=== PATIENT | female | born 1950 | race Caucasian/White ===

== ENCOUNTER → 2016-02-26 | Outpatient (CLI) | payer BC ==
[~2016-02-26] MED LIST: ACET-819 PO; ACET-93 PO; ALBU0.632 IH; AMLO5TAB2 PO; ASPI-808 PO; ASPI-983 PO; ATOR20TA66 PO; AZIT-21 PO; CNC1KV IJ; FURO20TA4 PO; GABA-488 PO; GABA600T2 PO; GLIM4TAB PO; GUAI1TBM7 PO; LINA5TAB PO; LISI-552 PO; LISI1TAB PO; LOSA100T28 PO; METF-380 PO; METF1000 PO; METO-333 PO; MULT1TAB69 PO; OXYB5TAB9 PO; PANT40TA2 PO; POTA10TA36 PO; SIMV20TA3 PO; TRAM50TA2 PO
--- OUTSIDE RECORDS SUMMARY | 2016-02-26 09:28 | XMS REPORT | Continuity of Care Document ---
Author Author [facility] Organization [facility] Address Unknown Phone Unavailable Care Team Providers Care Aircraft Engine Cylinder Mechanic Name Role Phone SUMAN GABRIEL DO PCP Insurance Providers Payer Name Policy Number Subscriber Name Relationship [facility] [id number] Enmanuel Nunez 18 Self / Same As Patient Advance Directives Directive Response Recorded Date/Time Advance Directives No 07/05/15 3:40pm Health Care Power of Guest Relation Officer No 07/05/15 3:40pm Organ Donor No 07/05/15 3:40pm Problems Active Problems Medical Problem Onset Date Status Chest pain Unknown Acute Medications Current Home Medications Medication Dose Units Route Directions Days/Qty Instructions Start Date Acetaminophen 500 Mg 500 Mg Oral As Needed as needed 03/31/11 Glimepiride 4 Mg 4 Mg Oral Twice A Day LAST FILLED 02/04/15 #60 Multivitamin 1 Each 1 Tab Oral Daily 04/08/15 Cyanocobalamin 1,000 Mcg/Ml 1,000 Mcg Injection 5TH Of Each Month Lisinopril 20 Mg 20 Mg Oral Once 07/05/15 Gabapentin 300 Mg 300 Mg Oral Bedtime 07/05/15 Atorvastatin Calcium 20 Mg 20 Mg Oral Bedtime 30 07/06/15 Metoprolol Tartrate 25 Mg 12.5 Mg Oral Twice A Day 60 07/06/15 Past Home Medications Medication Directions Ordered Status Metformin Hcl (Glucophage) 1,000 Mg Tablet, 1000 Mg Oral Twice A Day With Meals 03/29/11 Discontinued Lisinopril/Hydrochlorothiazide 1 Each Tablet, 2 Tab Oral Daily 03/29/11 Discontinued Guaifenesin/Dextromethorphan 1 Each Tab, 1 Tab Oral Twice A Day as needed for Congestion 03/31/11 Discontinued Albuterol Sulfate 0.63 Mg/3 Ml Vial.neb, 2 Puff Inhalation Four Times Daily as needed 03/31/11 Discontinued Azithromycin (Zpak) 250 Mg Tab, 250 Mg Oral Daily 03/31/11 Discontinued Linagliptin 5 Mg Tablet, 5 Mg Oral Daily 04/08/15 Discontinued Simvastatin 20 Mg Tablet, 20 Mg Oral Daily 04/08/15 Discontinued Aspirin 325 Mg Tablet, 325 Mg Oral Daily 04/08/15 Discontinued Tramadol Hcl 50 Mg Tablet, 50 Mg Oral Every 6 Hours as needed for Pain Discontinued Social History Social History Problem Response Recorded Date/Time Alcohol Use Denies Use 07/05/2015 3:40pm Recreational Drug Use No 07/05/2015 3:40pm Recent Foreign Travel No 05/23/2015 10:56am Sexually Transmitted Disease No 07/05/2015 3:40pm HIV/AIDS No 07/05/2015 3:40pm Do you dip or chew tobacco? No 07/05/2015 12:56pm Hospital Discharge Instructions No hospital discharge instructions. Plan of Care Prescriptions See Medication Section Functional Status No functional status results. Allergies, Adverse Reactions, Alerts No known allergies. Immunizations Name Given Type Date of Pneumonia Vaccine 06/22/11 Historical Date of Influenza Vaccine 02/05/15 Historical Hepatitis A No Historical Hepatitis B No Historical Tetanus Booster (TDap) Less than 5yrs Historical Vital Signs No known vital signs results. Results No known relevant diagnostic tests, laboratory data and/or discharge summary. Procedures No known history of procedures. Encounters Encounter Location Arrival/Admit Date Discharge/Depart Date Attending Provider Discharged Recurring [facility] 08/18/15 11:51am 11:59pm JOEL GRIJALVA MD
--- NOTE | 2016-02-29 16:09 | ECHOCARDIOGRAPHY REPORT ---
PROCEDURE PHYSICIAN: DANY BOX DATE OF PROCEDURE: 02/26/2016 TWO DIMENSIONAL ECHOCARDIOGRAM REPORT PRIMARY PHYSICIAN: OTHER PHYSICIAN: REFERRING PHYSICIAN: Dr. De La Torre ORDERING PHYSICIAN: INDICATION FOR THE PROCEDURE: Chest pain. MEASUREMENTS DERIVED VALUES LV DIAMETER (LAX) NORMALS NORMALS Diastolic 5 (3.6-5.2) Eject. Fract. 40% (60%+/-6%) Systolic (2.3-3.9) Diastolic Vol. % Shortening (0.22-0.42) Systolic Vol. Aortic Root IVS THICKNESS Diastolic 1 (0.6-1.1) LVPW THICKNESS Diastolic 1 (0.6-1.1) LA DIAMETER Systolic 3.8 (2.1-3.7) FINDINGS: 1. Technically difficult study. 2. The left ventricle is normal in size, endocardium was not well visualized in all segments. Overall, there is diffuse left ventricular hypokinesia with estimated ejection fraction 40%. 3. The left atrium is normal in size. No clot or thrombus were seen within the left atrium. 4. The right atrium and right ventricle are slightly prominent. No clot or thrombus were seen within the right side. 5. Mitral valve is normal in morphology with mild mitral regurgitation noted by color Doppler flow. No mitral valve prolapse. No mitral valve stenosis. 6. Aortic valve is trileaflet with no significant aortic valve stenosis or regurgitation seen. 7. Tricuspid valve is normal in morphology with moderate tricuspid regurgitation noted by color Doppler flow. Doppler across tricuspid valve estimated pulmonary artery pressure of 59+ right atrial pressure. 8. Pulmonic valve is functioning normally. 9. No pericardial effusion. IN CONCLUSION: 1. Technically difficult study. 2. Normal left ventricular size with moderate diffuse left ventricular hypokinesia. Endocardium was not well visualized in all segments. Overall systolic function is reduced. Estimated ejection fraction 40%. 3. Mild mitral regurgitation. Moderate tricuspid regurgitation. 4. Prominent right heart chambers with pulmonary hypertension. Estimated pulmonary artery pressure of 65 mmHg. Job ID: [id number] Dictated Date: 02/28/2016 09:01:11 Motorsports Technician Date: 02/29/2016 16:07:23 / judd
== END ==
LOC: CARD 09:25
PROVIDERS: ATTEND Internal Medicine Cardiovascular Disease
DX: I25.10 Atherosclerotic heart disease of native coronary artery without angina pectoris (principal); I50.21 Acute systolic (congestive) heart failure; R07.89 Other chest pain; I10 Essential (primary) hypertension; E78.2 Mixed hyperlipidemia
CPT/HCPCS: 93306

== ENCOUNTER → 2016-03-01 | Outpatient (CLI) | payer BC ==
[~2016-03-01] MED LIST changes: +CATHETER FLUSH 10 ML SYR IV PRN; +REGADENOSON 0.4 MG/5 ML SYR (LEXISCAN) IV ONE
--- OUTSIDE RECORDS SUMMARY | 2016-03-01 07:45 | XMS REPORT | Continuity of Care Document ---
Author Author [facility] Organization [facility] Address Unknown Phone Unavailable Care Team Providers Care Station Gateman Name Role Phone SUMAN GABRIEL DO PCP Insurance Providers Payer Name Policy Number Subscriber Name Relationship [facility] [id number] Enmanuel Nunez 18 Self / Same As Patient Advance Directives Directive Response Recorded Date/Time Advance Directives No 07/05/15 3:40pm Health Care Power of Audio/Visual Manager No 07/05/15 3:40pm Organ Donor No 07/05/15 [...] Discharge/Depart Date Attending Provider Discharged Recurring [facility] 08/18/15 11:51am 11:59pm JOEL GRIJALVA MD
[2016-03-01 09:34] VITALS: BP 173/83
[2016-03-01 09:40] VITALS: BP 169/80
--- NOTE | 2016-03-02 09:54 | STRESS TEST ---
PROCEDURE PHYSICIAN: DANY BOX LEXISCAN MYOVIEW STRESS TEST REPORT REFERRING PHYSICIAN: Dr. De La Torre DATE OF PROCEDURE: 03/01/2016 INDICATION: Coronary artery disease, congestive heart failure. Baseline heart rate is 87, baseline blood pressure: 173/83. Baseline EKG: Sinus rhythm with no ischemic changes. SUMMARY: The patient was injected with 10.25 mCi of technetium 99 Myoview and the resting images were obtained. Then the patient received 0.4 mg of Lexiscan, followed by 30.4 mCi of technetium 99 Myoview. Throughout the test, there were no EKG changes. The resting and stress images were reviewed and compared in the short axis, horizontal long axis, and vertical long axis views. Review of the images showed breast attenuation affecting the quality of the images. There is reversible ischemia involving the mid to apical anterior wall, mid to apical inferior wall and anterior lateral wall. SSS is 16, SDS 9, TID value 0.96. On the gated images, the left ventricle appeared to be dilated with diffuse left ventricular hypokinesia. Calculated ejection fraction 33%. CONCLUSION: 1. The patient tolerated Lexiscan well. 2. Breast attenuation affecting the quality of the images with reversible ischemia involving the mid to apical anterior wall and mid to apical inferior wall. 3. Dilated left ventricle with diffuse left ventricular hypokinesia. Calculated ejection fraction 33%. Job ID: [id number] Dictated Date: 03/02/2016 08:38:41 Saw Cleaner Date: 03/02/2016 09:50:27 / georgina
== END ==
LOC: CARD 07:42
PROVIDERS: ATTEND Internal Medicine Cardiovascular Disease
DX: I25.10 Atherosclerotic heart disease of native coronary artery without angina pectoris (principal); I50.21 Acute systolic (congestive) heart failure; R07.89 Other chest pain; I10 Essential (primary) hypertension; E78.2 Mixed hyperlipidemia
CPT/HCPCS: 78452; 93017

== ENCOUNTER 2016-03-10 06:52 | Day surgery (SDC) | payer BC ==
[~2016-03-10] VITALS: Ht 170.2 cm; Wt 99.3 kg
[2016-03-10] VITALS (11 sets, daily range): BP systolic 119–168; BP diastolic 60–80
[~2016-03-10 06:52] MED LIST changes: -ACET-93 PO; -AMLO5TAB2 PO; -ASPI-983 PO; -CATHETER FLUSH 10 ML SYR IV PRN; -FURO20TA4 PO; -GABA600T2 PO; -LOSA100T28 PO; -METF1000 PO; -OXYB5TAB9 PO; -PANT40TA2 PO; -POTA10TA36 PO; -REGADENOSON 0.4 MG/5 ML SYR (LEXISCAN) IV ONE
[2016-03-10] MEDS ORDERED: HEParin (CATH LAB) 2,000 ML IV ONE (06:54)
[2016-03-10] MEDS ORDERED: NS IV 1000 ML 1,000 ML ONE (06:54)
[2016-03-10] MEDS ORDERED: LIDOCAINE 1% INJ 20 ML (XYLOCAINE) VIAL ONE (06:54)
--- OUTSIDE RECORDS SUMMARY | 2016-03-10 06:56 | XMS REPORT | Continuity of Care Document ---
Author Author [facility] Organization [facility] Address Unknown Phone Unavailable Care Team Providers Care Engineer Soils Name Role Phone SUMAN GABRIEL DO PCP Insurance Providers Payer Name Policy Number Subscriber Name Relationship [facility] [id number] Enmanuel Nunez 18 Self / Same As Patient Advance Directives Directive Response Recorded Date/Time Advance Directives No 07/05/15 3:40pm Health Care Power of Wooling Machine Operator No 07/05/15 3:40pm Organ Donor No 07/05/15 [...] Discharge/Depart Date Attending Provider Discharged Recurring [facility] 08/18/15 11:51am 11:59pm JOEL GRIJALVA MD
--- OUTSIDE RECORDS SUMMARY | 2016-03-10 06:56 | XMS REPORT | Continuity of Care Document ---
Author Author [facility] Organization [facility] Address Unknown Phone Unavailable Care Team Providers Care Customer Liaison Name Role Phone SUMAN GABRIEL DO PCP Insurance Providers Payer Name Policy Number Subscriber Name Relationship [facility] [id number] Enmanuel Nunez 18 Self / Same As Patient Advance Directives Directive Response Recorded Date/Time Advance Directives No 07/05/15 3:40pm Health Care Power of Polygraph Examiner No 07/05/15 3:40pm Organ Donor No 07/05/15 [...] Discharge/Depart Date Attending Provider Discharged Recurring [facility] 08/18/15 11:51am 11:59pm JOEL GRIJALVA MD
[2016-03-10 07:40] LABS: MEAN PLATELET VOLUME 10.6 FL (7.4-10.4); RED BLOOD COUNT 3.28 10^6/uL (4.35-5.85); WHITE BLOOD COUNT 8.9 10^3/uL (4.3-11.0)
[2016-03-10 07:42] LABS: BILIRUBIN,URINE NEGATIVE (NEGATIVE); KETONES,URINE NEGATIVE (NEGATIVE); LEUKOCYTE ESTERASE ,URINE 1+ (NEGATIVE); NITRITE,URINE NEGATIVE (NEGATIVE); PH,URINE 7 (5-9); PROTEIN,URINE 2+ (NEGATIVE); UROBILINOGEN,URINE NORMAL (NORMAL)
[2016-03-10] MEDS ORDERED: NS IV 1000 ML 1,000 ML IV SCH ×2 (07:45→10:09)
--- NOTE | 2016-03-10 07:46 | Diagnostic Imaging Report ---
INDICATION: Chest pain. Portable chest 7:36 AM FINDINGS: There are postop changes from CABG surgery. Heart size and pulmonary vascularity are normal. Lungs are clear. There are no effusions or pneumothoraces. IMPRESSION: No acute abnormalities in the chest. Dictated by: Dictated on workstation # [id number]
[2016-03-10 08:00] LABS: ALANINE AMINOTRANSFERASE 21 U/L (0-55); ALBUMIN 3.7 G/DL (3.2-4.5); ANION GAP 10 MMOL/L (5-14); ASPARTATE AMINO TRANSFERASE 17 U/L (5-34); BILIRUBIN,TOTAL 0.4 MG/DL (0.1-1.0); BLOOD UREA NITROGEN 19 MG/DL (7-18); BUN/CREATININE RATIO 21; CALCIUM 8.8 MG/DL (8.5-10.1); CARBON DIOXIDE 23 MMOL/L (21-32); CHLORIDE 107 MMOL/L (98-107); CHOLESTEROL 195 MG/DL (< 200); CREATININE SERUM 0.91 MG/DL (0.60-1.30); DIRECT LDL 135 MG/DL (1-129); GFR ESTIMATED > 60; GLUCOSE 222 MG/DL (70-105); POTASSIUM 4.1 MMOL/L (3.6-5.0); SODIUM 140 MMOL/L (135-145); TRIGLYCERIDES 96 MG/DL (<150); VLDL CHOLESTEROL 19 MG/DL (5-40)
[2016-03-10 08:12] LABS: SQUAMOUS EPITHELIAL CELL,UR 0-2 /HPF; WBC,URINE 0-2 /HPF
[2016-03-10 08:38] LABS: INR 1.1 (0.8-1.4); PROTHROMBIN TIME PATIENT 13.6 SEC (12.2-14.7)
[2016-03-10] MEDS ORDERED: MIDAZOLAM 5 MG/5 ML (VERSED) VIAL ONE (09:17)
[2016-03-10] MEDS ORDERED: fentaNYL INJECTION 100 MCG/2 ML AMP ONE (09:17)
[2016-03-10] MEDS ORDERED: AMLO5TAB2 PO (09:42)
[2016-03-10] MEDS ORDERED: ASPI-983 PO (09:42)
[2016-03-10] MEDS ORDERED: GABA600T2 PO (09:42)
[2016-03-10] MEDS ORDERED: OXYB5TAB9 PO (09:42)
[2016-03-10] MEDS ORDERED: POTA10TA36 PO (09:42)
[2016-03-10] MEDS ORDERED: ACET-93 PO (09:42)
[2016-03-10] MEDS ORDERED: ATOR20TA66 PO (09:42)
[2016-03-10] MEDS ORDERED: METF1000 PO (09:42)
[2016-03-10] MEDS ORDERED: FURO20TA4 PO (09:42)
[2016-03-10] MEDS ORDERED: PANT40TA2 PO (09:42)
[2016-03-10] MEDS ORDERED: LOSA100T28 PO (09:42)
[2016-03-10] MEDS ORDERED: LINA5TAB PO (09:42)
[2016-03-10] MEDS ORDERED: METO-333 PO (09:42)
--- NOTE | 2016-03-10 09:47 | Cardiac Procedure Note-CS/ASA ---
Pre-Procedure Note Pre-Op Procedure Note H&P Reviewed The H&P was reviewed, patient examined and no changes noted. Date H&P Reviewed: Mar 10, 2016 Time H&P Reviewed: 09:46 Conscious Sedation Pre-Proced Time Reviewed: 09:46 ASA Class: 3 Airway Mallampati Classification: ([place] appropriate class) I. II. III, IV Lungs Heart ASA score ASA 1: a normal healthy patient ASA 2: a patient with a mild systemic disease (mid diabetes, controlled hypertension, obesity X ASA 3: a patient with a severe systemic disease that limits activity (angina , COPD, prior Myocardial infarction) ASA 4: a patient with an incapacitating disease that is a constant threat to life (CHF, renal failure) ASA 5: a moribund patient not expected to survive 24 hrs. (ruptured aneurysm) ASA 6: a declared brain patient whose organs are being harvested. For emergent operations, add the letter E after the classification Grade 3 Sedation Plan: Analgesia, Amnesia, Plan communicated to team members, Discussed options with patient/fam, Discussed risks with patient/fam Note The patient is an appropriate candidate to undergo the planned procedure, sedation, and anesthesia. The patient immediately re-assessed prior to indication. DANY BOX MD Mar 10, 2016 09:46
--- NOTE | 2016-03-10 10:11 | Discharge Inst-Post CATH ---
Discharge Inst-CATH Post Cardiac Cath D/C Inst Follow Up/Plan Hold Metformin for [address] Walker's office in 2-4 weeks CARDIAC CATH DISCHARGE INSTRUCTIONS *Hold Metformin for 48 hours post heart cath. ACTIVITY * Go Home directly and rest. * Limit activity of the leg (or wrist if it was used) for 7 days including aerobics, swimming, jogging, bicycling, etc. * Restrict stair-climbing for 7 days if possible, if not, climb up with your non -cath leg, then bring together on the same step. * Avoid lifting, pushing, pulling or excessive movement of the affected extremity for 7 days. * Customary sexual activity may be resumed after 2 days-use caution not to use a position that strains or causes pain to the affected extremity. * No driving for 24 hours. * NO SMOKING. * Avoid straining for bowel movements for 7 days. * Gentle walking on level ground is allowed. * Returning to work will depend on the type of procedure and the results. Your doctor will discuss this with you. CALL YOUR DOCTOR FOR ANY OF THE FOLLOWING: *If bleeding from the puncture site occurs- Apply gentle pressure to site with clean cloth and call your doctor or EMS. * If a knot or lump forms under the skin, increases in size, or causes pain. * If bruising appears to be worsening or moving further down your leg instead of disappearing. * Temperature above 101 F. CARE OF YOUR GROIN INCISION; * Bruising or purple discoloration of the skin near the puncture site is common. * You may shower only, no bathtub bathing for 5 days. Be careful to avoid slipping as your leg may feel stiff. * If a closure device was used on your femoral artery, please see the attached guide regarding care of the device and your leg. * REMOVE the dressing from your groin the next day after your procedure in the shower. CARE OF YOUR WRIST INCISION; * Bruising or purple discoloration of the skin near the puncture site is common. * You may shower. * DO NOT submerge wrist. * Remove dressing in 24 hours. DANY WALKER MD Mar 10, 2016 10:11
[2016-03-10] MEDS ORDERED: PATIENT MAY USE OWN MEDS, ALL PO SCH (10:15)
--- NOTE | 2016-03-10 15:04 | DISCHARGE SUMMARY ---
PROCEDURE PHYSICIAN: DANY BOX DATE OF PROCEDURE: 03/10/2016 BRIEF HISTORY: Mrs. Green is a 65-year-old lady with history of coronary artery disease, CABG, had an abnormal stress test. She has been having recurrent chest pain. She was scheduled for left heart catheterization, possible PTCA. PROCEDURE NOTE: After explaining the procedure to the patient, all pros and cons were explained. All questions were answered. The patient signed a consent, then she was placed on the cardiac catheterization laboratory the right groin was prepped in a sterile fashion. Local anesthesia applied to right groin. 6-Kinyarwanda sheath was placed in the right femoral artery. Combination of right and left Agustín catheter were used to access the right and left coronary system. Multiple views were obtained. Agustín right catheter was used to access the vein graft. Advanced to the subclavian artery, I was unable to intubate the internal mammary exchanged over a long Storq wire into an IM catheter. Angiogram to the internal mammary artery was done. Then the catheter was removed. Pigtail catheter advanced to the left ventricular cavity. Left ventriculogram was done. Pullback LV to aorta was done. At the end of the procedure, sheath was removed. Mynx device deployed. Hemostasis achieved. FINDINGS: HEMODYNAMICS: LV pressure 159/26, end-diastolic pressure of 26, aortic pressure 173/69, mean of 90. ANATOMY: 1. Left main coronary artery is bifurcating to left anterior descending and left circumflex artery with no obstructive disease. 2. The left anterior descending artery is moderate in size. The CHING to the LAD is patent with competitive flow. 3. Left circumflex artery is totally occluded proximally with patent vein graft to the circumflex system. 4. Right coronary artery is totally occluded proximally with occluded vein graft to the right coronary system getting filled by collateral from the circumflex system. 5. Vein graft angiogram: The lower vein graft is the vein graft to the right coronary artery that is occluded. 6. Upper vein graft is vein graft to the circumflex artery obtuse marginal branch, which is patent with good flow distally, filing the right coronary artery via collaterals. 7. CHING Angiogram: The CHING angiogram was done showing patent CHING to the LAD with small vessel disease. 8. Left ventriculogram was done in the left anterior oblique position. The left ventricle is dilated with mild diffuse left ventricular hypokinesia. Estimated ejection fraction 35 to 40%. 9. Thoracic aortogram/aortic root angiogram: Thoracic aorta and aortic root are normal in size. No dissection or aneurysm was seen. One vein graft was getting filled. The other vein graft did not receive any blood flow. CONCLUSION: 1. Totally occluded right coronary artery and occluded vein graft to the right coronary artery. The right coronary artery is getting filled by collateral from the left system. 2. Patent CHING to the LAD. 3. Patent vein graft to the obtuse marginal branch. 4. Dilated left ventricle with diffuse left ventricular hypokinesia more pronounced at the inferior wall. Estimated ejection fraction 35 to 40%. 5. Normal thoracic aorta and aortic root. DISCUSSION AND RECOMMENDATION: I will continue maximizing medical therapy. No intervention is warranted at this time. The patient is maintained on beta blockers and AILEEN inhibitors. Continue to monitor her. FINAL DIAGNOSIS: 1. Coronary artery disease. 2. Congestive heart failure, chronic compensated left ventricular systolic dysfunction, ischemic cardiomyopathy. 3. Hypertension. 4. Hyperlipidemia. Job ID: [id number] Dictated Date: 03/10/2016 10:19:09 Instrumentation And Controls Designer Date: 03/10/2016 15:01:35/georgina
== END 2016-03-10 14:45 | disposition home or self-care (01) ==
LOC: CATH 06:52
PROVIDERS: ATTEND Internal Medicine Cardiovascular Disease
DX: R07.89 Other chest pain (principal); I25.10 Atherosclerotic heart disease of native coronary artery without angina pectoris; I25.82 Chronic total occlusion of coronary artery; R94.39 Abnormal result of other cardiovascular function study; I50.22 Chronic systolic (congestive) heart failure; E11.9 Type 2 diabetes mellitus without complications; I10 Essential (primary) hypertension; E78.5 Hyperlipidemia, unspecified; Z79.899 Other long term (current) drug therapy; Z95.1 Presence of aortocoronary bypass graft
CPT/HCPCS: 36415; 71010; 80053; 80061; 81000; 85027; 85610; 85730; 87081; 87088; 93005; 93459; 93567

== ENCOUNTER → 2016-04-22 | Outpatient (CLI) | payer BC ==
[~2016-04-22] MED LIST changes: +ACET-93 PO; +AMLO5TAB2 PO; +ASPI-983 PO; +FURO20TA4 PO; +GABA600T2 PO; +LOSA100T28 PO; +METF1000 PO; +OXYB5TAB9 PO; +PANT40TA2 PO; +POTA10TA36 PO
--- OUTSIDE RECORDS SUMMARY | 2016-04-22 15:22 | XMS REPORT | Continuity of Care Document ---
Author Author [facility] Organization [facility] Address Unknown Phone Unavailable Care Team Providers Care New Accounts Representative Name Role Phone SUMAN GABRIEL DO PCP Insurance Providers Payer Name Policy Number Subscriber Name Relationship [facility] [id number] Enmanuel Nunez 18 Self / Same As Patient Advance Directives Directive Response Recorded Date/Time Advance Directives No 07/05/15 3:40pm Health Care Power of Piercer Operator No 07/05/15 3:40pm Organ Donor No [...] Discharge/Depart Date Attending Provider Discharged Recurring [facility] 08/18/15 11:51am 11:59pm JOEL GRIJALVA MD
--- NOTE | 2016-04-22 19:35 | Diagnostic Imaging Report ---
PA and lateral chest at 345 hours. INDICATION: Shortness of breath. FINDINGS: The cardiomegaly and the sternal wires and surgical clips noted on the prior exam of 03/10/16 are again visualized and no different. The lungs remain clear. There is still no sign of failure, pneumonia or pleural effusion. The mediastinum is not widened. The osseous structures are intact. IMPRESSION: Stable chest. There has been no adverse change since the prior exam. Dictated by: Dictated on workstation # [id number]
== END ==
LOC: RAD 15:19
PROVIDERS: ATTEND Internal Medicine Critical Care Medicine
DX: G47.33 Obstructive sleep apnea (adult) (pediatric) (principal); R06.00 Dyspnea, unspecified
CPT/HCPCS: 71020

== ENCOUNTER → 2016-05-12 | Outpatient (CLI) | payer BC ==
[~2016-05-12] MED LIST changes: +RT-ALBUTEROL SULF 2.5 MG/3 ML PRE-MIX VIAL INH ONE; +RT-ALBUTEROL SULF 2.5 MG/3 ML PRE-MIX VIAL ONE
== END ==
LOC: RT 09:28
PROVIDERS: ATTEND Internal Medicine Critical Care Medicine
DX: R06.00 Dyspnea, unspecified (principal); G47.33 Obstructive sleep apnea (adult) (pediatric)
CPT/HCPCS: 94060; 94640; 94726; 94729

== ENCOUNTER 2021-08-03 05:37 | Outpatient (CLI) | payer MEDICARE ==
[~2021-08-03] VITALS: Ht 167.7 cm; Wt 91.8 kg
[~2021-08-03 05:37] MED LIST changes: +AMLO-250 PO; -AMLO5TAB2 PO; +ASPI-1238 PO; -ASPI-983 PO; -GABA600T2 PO; +GBPN600T PO; -GLIM4TAB PO; +GLIM4TAB5 PO; -LISI-552 PO; +LISI20TA26 PO; -LOSA100T28 PO; +LOSA100T57 PO; +METF-399 PO; -METF1000 PO; +MULT-567 PO; -MULT1TAB69 PO; +OXYB5TAB13 PO; -OXYB5TAB9 PO; -POTA10TA36 PO; +POTA10TA37 PO; -RT-ALBUTEROL SULF 2.5 MG/3 ML PRE-MIX VIAL INH ONE; -RT-ALBUTEROL SULF 2.5 MG/3 ML PRE-MIX VIAL ONE; +SIMV20TA26 PO; -SIMV20TA3 PO; -TRAM50TA2 PO; +TRM50T PO
[2021-08-03] MEDS ORDERED: MAGN100T5 PO (10:15)
[2021-08-03] MEDS ORDERED: ROSU40TA23 PO (10:15)
[2021-08-03] MEDS ORDERED: CANA300T PO (10:15)
[2021-08-03] MEDS ORDERED: DULA0.75 SQ (10:15)
[2021-08-03] MEDS ORDERED: IRON (10:15)
[2021-08-03] MEDS ORDERED: MULT-1021 PO (10:15)
[2021-08-03] MEDS ORDERED: METF-399 PO (10:15)
[2021-08-03] MEDS ORDERED: LISI20TA26 PO (10:15)
[2021-08-03] MEDS ORDERED: METO50TA15 PO (10:15)
[2021-08-03] MEDS ORDERED: ISOS30TA82 PO (10:16)
== END 2021-08-05 09:40 | disposition home or self-care (01) ==
LOC: PREOP 05:37
PROVIDERS: ATTEND Specialist
DX: Z01.818 Encounter for other preprocedural examination (principal)

== ENCOUNTER 2021-08-07 09:32 | Day surgery (SDC) | payer MEDICARE ==
[~2021-08-07] VITALS: Ht 167.7 cm; Wt 91.8 kg
[~2021-08-07 09:32] MED LIST changes: +CANA300T PO; +DULA0.75 SQ; +IRON; +ISOS30TA82 PO; +MAGN100T5 PO; +METO50TA15 PO; +MULT-1021 PO; +ROSU40TA23 PO
[2021-08-07] MEDS ORDERED: TIMOLOL MALEATE 0.5% 5 ML (TIMOPTIC) BTL OU PRN (09:45)
[2021-08-07] MEDS ORDERED: POVIDONE (BETADINE) OPHTH SOLN 5% 30 ML OP ONE (09:45)
[2021-08-07] MEDS ORDERED: LIDOCAINE PF 1% 2 ML VIAL IR PRN (09:45)
[2021-08-07] MEDS ORDERED: MOXIFLOXACIN OPHTH SOLN 5 MG/ML 0.3 ML SYRINGE OP ONE (09:45)
[2021-08-07 09:55] VITALS: BP 183/80
[2021-08-07] MEDS ORDERED: DEXTROSE 50% 50 ML (IMS) SYR ONE (09:58)
[2021-08-07] MEDS ORDERED: DEXTROSE 50% 50 ML (IMS) SYR IV ONE (10:00)
[2021-08-07] MEDS: TETRACAINE 0.5% OPHTH SOLN 4 ML BTL (SINGLE DOSE ONLY) OU PRN ×4 (10:02→10:20)
[2021-08-07] MEDS: TROPICAMIDE 1% OPH SOLN (MYDRIACYL) 15 ML BTL OP SCH ×3 (10:09→10:20)
[2021-08-07] MEDS: PHENYLEPHRINE 10% OPHTH (NEO-SYN) 5 ML BTL OU SCH ×3 (10:10→10:20)
--- NOTE | 2021-08-07 10:59 | Ophthalmologist Pre-Op Note ---
Pre-Operative Progress Note H&P Reviewed The H&P was reviewed, patient examined and no changes noted. Date H&P Reviewed: Aug 07, 2021 Time H&P Reviewed: 10:58 Pre-Op Dx Cataract, Left Eye MENG EDEN MD Aug 07, 2021 10:59
[2021-08-07] MEDS ORDERED: MIDAZOLAM 2 MG/2 ML (VERSED) VIAL ONE (11:05)
--- NOTE | 2021-08-07 11:23 | Ophthalmology Operative Report ---
Cataract removal/placement IOL PREOPERATIVE DIAGNOSIS: Cataract Left Eye POSTOPERATIVE DIAGNOSIS: Cataract Left Eye PROCEDURE: Cataract removal and placement of posterior chamber implant, left eye SURGEON: Taco Eden ANESTHESIA: Topical with sedation COMPLICATIONS: None ESTIMATED BLOOD LOSS: Minimal DESCRIPTION OF PROCEDURE: After proper informed consent was obtained, the patient, a 70 female, was taken to the Operating Room and the left eye was anesthetized with tetracaine. The left eye was then prepped and draped in the usual manner. A wire lid speculum was placed. A paracentesis was made at the left hand position. Preservative free lidocaine was injected into the anterior chamber followed by viscoelastic. A clear corneal incision was made in the temporal position. A capsulorrhexis was preformed and the central nuclear and cortical material were removed. The posterior capsule was polished and an Sudhir 14.0 AU00T0 was placed into the capsular bag. The residual viscoelastic was aspirated and balanced saline solution was injected into the anterior chamber. Moxifloxacin was injected into the anterior chamber. The wound was checked and found to be water tight. The patient tolerated the procedure well without complications. TACO EDEN MD Aug 07, 2021 11:23
[2021-08-07 11:28] VITALS: BP 177/74
[2021-08-07] MEDS ORDERED: acetaZOLAMIDE ER 500 MG CAP (DIAMOX SEQUELS) PO ONE (12:00)
--- NOTE | 2021-08-07 12:47 | Anesthesia-General Post-Op ---
MAC Patient Condition Mental Status/LOC: Same as Preop Cardiovascular: Satisfactory Nausea/Vomiting: Absent Respiratory: Satisfactory Pain: Controlled Complications: Absent Post Op Complications Complications None Follow Up Care/Instructions Patient Instructions None needed. Anesthesiology Discharge Order Discharge Order Patient is doing well, no complaints, stable vital signs, no apparent adverse anesthesia problems. No complications reported per nursing. FEDERICO MILLER CRNA Aug 07, 2021 12:47
== END 2021-08-07 11:29 | disposition home or self-care (01) ==
LOC: SDC 09:32
PROVIDERS: ATTEND Specialist
DX: E11.36 Type 2 diabetes mellitus with diabetic cataract (principal); H25.9 Unspecified age-related cataract; Z79.84 Long term (current) use of oral hypoglycemic drugs; Z95.1 Presence of aortocoronary bypass graft
CPT/HCPCS: 66984; 82947; V2632

== ENCOUNTER → 2021-08-18 | Outpatient (CLI) | payer MEDICARE | END | disposition home or self-care (01) | LOC: PREOP 08:38 | PROVIDERS: ATTEND Specialist | DX: Z01.818 Encounter for other preprocedural examination (principal) ==

== ENCOUNTER 2021-08-28 09:57 | Day surgery (SDC) | payer MEDICARE ==
[~2021-08-28] VITALS: Ht 168 cm; Wt 91.8 kg
[2021-08-28] MEDS: TETRACAINE 0.5% OPHTH SOLN 4 ML BTL (SINGLE DOSE ONLY) OU PRN ×4 (10:04→10:21)
[2021-08-28] MEDS ORDERED: MIDAZOLAM 2 MG/2 ML (VERSED) VIAL ONE (10:07)
[2021-08-28 10:09] VITALS: BP 139/106
[2021-08-28] MEDS: TROPICAMIDE 1% OPH SOLN (MYDRIACYL) 15 ML BTL OP SCH ×3 (10:11→10:21)
[2021-08-28] MEDS: PHENYLEPHRINE 10% OPHTH (NEO-SYN) 5 ML BTL OU SCH ×3 (10:11→10:21)
[2021-08-28] MEDS ORDERED: TIMOLOL MALEATE 0.5% 5 ML (TIMOPTIC) BTL OU PRN (10:15)
[2021-08-28] MEDS ORDERED: LIDOCAINE PF 1% 2 ML VIAL IR PRN (10:15)
[2021-08-28] MEDS ORDERED: POVIDONE (BETADINE) OPHTH SOLN 5% 30 ML OP ONE (10:15)
[2021-08-28] MEDS ORDERED: MOXIFLOXACIN OPHTH SOLN 5 MG/ML 0.3 ML SYRINGE OP ONE (10:15)
--- NOTE | 2021-08-28 10:28 | Ophthalmologist Pre-Op Note ---
Pre-Operative Progress Note H&P Reviewed The H&P was reviewed, patient examined and no changes noted. Date H&P Reviewed: Aug 28, 2021 Time H&P Reviewed: 10:27 Pre-Op Dx Cataract, Right Eye MENG EDEN MD Aug 28, 2021 10:28
--- NOTE | 2021-08-28 10:48 | Ophthalmology Operative Report ---
Cataract removal/placement IOL PREOPERATIVE DIAGNOSIS: Cataract Right Eye POSTOPERATIVE DIAGNOSIS: Cataract Right Eye PROCEDURE: Cataract removal and placement of posterior chamber implant, right eye SURGEON: Taco Eden ANESTHESIA: Topical with sedation COMPLICATIONS: None ESTIMATED BLOOD LOSS: Minimal DESCRIPTION OF PROCEDURE: After proper informed consent was obtained, the patient, a 71 female, was taken to the Operating Room and the right eye was anesthetized with tetracaine. The right eye was then prepped and draped in the usual manner. A wire lid speculum was placed. A paracentesis was made at the left hand position. Preservative free lidocaine was injected into the anterior chamber followed by viscoelastic. A clear corneal incision was made in the temporal position. A capsulorrhexis was preformed and the central nuclear and cortical material were removed. The posterior capsule was polished and Sudhir 16.0 AU00T0 IOL was placed into the capsular bag. The residual viscoelastic was aspirated and balanced saline solution was injected into the anterior chamber. Moxifloxacin was injected into the anterior chamber. The wound was checked and found to be water tight. The patient tolerated the procedure well without complications. TACO EDEN MD Aug 28, 2021 10:48
[2021-08-28 10:55] VITALS: BP 153/73
[2021-08-28] MEDS ORDERED: acetaZOLAMIDE ER 500 MG CAP (DIAMOX SEQUELS) PO ONE (12:00)
--- NOTE | 2021-08-28 13:45 | Anesthesia-General Post-Op ---
MAC Patient Condition Mental Status/LOC: Same as Preop Cardiovascular: Satisfactory Nausea/Vomiting: Absent Respiratory: Satisfactory Pain: Controlled Complications: Absent Post Op Complications Complications None Follow Up Care/Instructions Patient Instructions None needed. Anesthesiology Discharge Order Discharge Order Patient is doing well, no complaints, stable vital signs, no apparent adverse anesthesia problems. No complications reported per nursing. LINDY SAUCEDO CRNA Aug 28, 2021 13:45
== END 2021-08-28 10:57 | disposition home or self-care (01) ==
LOC: SDC 09:57
PROVIDERS: ATTEND Specialist
DX: E11.36 Type 2 diabetes mellitus with diabetic cataract (principal); H25.9 Unspecified age-related cataract; Z95.1 Presence of aortocoronary bypass graft; Z79.84 Long term (current) use of oral hypoglycemic drugs
CPT/HCPCS: 66984; V2632